=== PATIENT | female | born 1975 | race Caucasian/White ===

== ENCOUNTER → 2016-10-26 | Outpatient (CLI) | payer OTHER ==
[2016-10-26 11:08] LABS: Blood Urea Nitrogen 10 mg/dL (7-17); Non-African American GFR(MDRD) >60 (>60 ml/min/1.73 sqM)
--- NOTE | 2016-10-26 12:55 | CT ---
EXAMINATION TYPE: CT abdomen pelvis w con DATE OF EXAM: 10/26/2016 COMPARISON: 09/01/2015 HISTORY: Abdominal hernia CT DLP: 2088 mGycm CONTRAST: CT scan of the abdomen and pelvis is performed with Oral Contrast and with IV Contrast, patient injec johnathan with 100 mL of Omnipaque 300. FINDINGS: LUNG BASES-: No visible nodule. No infiltrate. LIVER/GB: There is evidence of hepatic steatosis with hepatomegaly. The gallbladder is surgically abs ent. No space occupying hepatic lesion. Biliary tree is of normal caliber. PANCREAS: No inflammation. No distinct mass. SPLEEN: No splenic enlargement. No lesion seen. ADRENALS: No nodule. No thickening. KIDNEYS/BLADDER: No hydronephrosis. No nephrolithiasis. No disctinct renal mass. Urinary bladder g rossly unremarkable. BOWEL: Normal appendix. Normal bowel caliber. No inflammation. There is moderate fecal stasis ident ified. GENITAL ORGANS: No gross abnormality. LYMPH NODES: No greater than 1cm abdominal or pelvic lymph nodes are appreciated. AORTA: No significant abnormality. OSSEOUS STRUCTURES: No significant abnormality is seen. OTHER: The right rectus sheath musculature is atrophied. I do not see evidence for abdominal wall her bradford at this time. IMPRESSION: 1. No evidence for abdominal wall hernia. 2. Hepatic steatosis with hepatomegaly.
== END | disposition home or self-care (01) ==
LOC: RADCTMAIN 10:13
PROVIDERS: ATTEND Surgery
DX: K76.0 Fatty (change of) liver, not elsewhere classified (principal); R16.0 Hepatomegaly, not elsewhere classified
CPT/HCPCS: 82565; 84520; 74177; 36415; Q9967

== ENCOUNTER 2017-07-06 06:01 | Day surgery (SDC) | payer MEDICARE, OTHER ==
[2017-07-04 11:08] VITALS: BMI 41.9
[~2017-07-06 06:01] MED LIST: LACTATED RINGERS 1,000 ML IV SCH
[2017-07-06 06:46] VITALS: TEMP 98.3
[2017-07-06 06:56] LABS: Glucose,Whole Blood 97 mg/dL (75-99)
[2017-07-06] MEDS ORDERED: LIDOCAINE 1% INJ 10MG/ML (20 ML MDV) ONE (07:00)
[2017-07-06] MEDS ORDERED: MIDAZOLAM 2 MG/2 ML VIAL ONE (07:00)
[2017-07-06] MEDS ORDERED: PROPOFOL 10 MG/ML 20 ML VIAL IV ONE (07:00)
--- NOTE | 2017-07-06 07:01 | P.GSHP ---
History of Present Illness H&P Date: 07/06/17 CHIEF COMPLAINT: GERD HISTORY OF PRESENT ILLNESS: The patient is a 42-year-old female who presents reports gastroesophageal reflux disease. Upper endoscopy was offered for further evaluation and management. PAST MEDICAL HISTORY: Please see list. PAST SURGICAL HISTORY: Please see list. MEDICATIONS: Please see list. ALLERGIES: Please see list. SOCIAL HISTORY: No illicit drug use FAMILY HISTORY: No reports of Crohn disease or ulcerative colitis. REVIEW OF ORGAN SYSTEMS: CONSTITUTIONAL: No reports of fevers or chills. GI: Denies any blood in stools or constipation. PHYSICAL EXAM: VITAL SIGNS: Stable GENERAL: Well-developed and pleasant in no acute distress. HEENT: No scleral icterus. Extraocular movements grossly intact. Moist buccal mucosa. NECK: Supple without lymphadenopathy. CHEST: Unlabored respirations. Equal bilateral excursions. CARDIOVASCULAR: Regular rate and rhythm. Distal 2+ pulses. ABDOMEN: Soft, nondistended. MUSCULOSKELETAL: No clubbing, cyanosis, or edema. ASSESSMENT: 1. Gastroesophageal reflux disease PLAN: 1. Recommend proceeding with an upper endoscopy Past Medical History Past Medical History: Asthma, Cancer, Diabetes Mellitus, GERD/Reflux, Hypertension Additional Past Medical History / Comment(s): allergies, breast cancer History of Any Multi-Drug Resistant Organisms: None Reported Past Surgical History: Breast Surgery, Cholecystectomy, Hysterectomy Additional Past Surgical History / Comment(s): LEFT MASTECTOMY WITH RECONSTRUCTION Past Anesthesia/Blood Transfusion Reactions: No Reported Reaction Smoking Status: Never smoker - Past Family History Mother Family Medical History: Deep Vein Thrombosis (DVT) Medications and Allergies Home Medications Medication Instructions Recorded Confirmed Type Albuterol Inhaler [Ventolin Hfa 1 - 2 puff INHALATION Q6HR PRN 04/12/15 History Inhaler] Cetirizine HCl 10 mg PO DAILY 04/12/15 07/06/17 History DULoxetine HCL [Cymbalta] 60 mg PO BID 04/12/15 07/06/17 History HYDROcodone/APAP 5-325MG [[place] 1 tab PO Q4HR PRN 04/12/15 07/06/17 History 5-325] Ipratropium-Albuterol Nebulize 3 ml INHALATION Q4H PRN #50 neb 04/12/15 Rx [Duoneb 0.5 mg-3 mg/3 ml Soln] amLODIPine BESYLATE [Norvasc] 5 mg PO HS 04/12/15 07/06/17 History buPROPion XL [Wellbutrin Xl] 150 mg PO DAILY 04/12/15 07/06/17 History ALPRAZolam [Xanax] 0.5 mg PO BID 07/04/17 07/06/17 History Benztropine Mesylate 0.5 mg PO BID 07/04/17 07/06/17 History Ergocalciferol (Vitamin D2) 50,000 unit PO SA 07/04/17 07/06/17 History [Vitamin D2] Furosemide [Lasix] 40 mg PO DAILY 07/04/17 07/06/17 History Losartan [Cozaar] 50 mg PO HS 07/04/17 07/06/17 History OXcarbazepine [Trileptal] 300 mg PO BID 07/04/17 07/06/17 History Omeprazole 40 mg PO DAILY 07/04/17 07/06/17 History Potassium Chloride [Klor-Con 20] 20 meq PO DAILY 07/04/17 07/06/17 History QUEtiapine [SEROquel] 100 mg PO HS 07/04/17 07/06/17 History cloNIDine HCL [Catapres] 0.2 mg PO HS 07/04/17 07/06/17 History metFORMIN HCL [Glucophage] 500 mg PO DAILY 07/04/17 07/06/17 History Allergies Allergy/AdvReac Type Severity Reaction Status Date / Time No Known Allergies Allergy Verified 07/04/17 11:01 Surgical - Exam Vital Signs Temp Pulse Resp BP Pulse Ox 98.3 F 62 20 123/71 98 07/06/17 06:44 07/06/17 06:44 07/06/17 06:44 07/06/17 06:44 07/06/17 06:44
--- NOTE | 2017-07-06 07:20 | P.PCN ---
Date of Procedure: 07/06/17 Description of Procedure: PREOPERATIVE DIAGNOSIS: Gastroesophageal reflux disease. Morbid obesity. POSTOPERATIVE DIAGNOSIS: Morbid obesity. Gastritis. Gastroesophageal reflux disease. OPERATION: Esophagogastroduodenoscopy with biopsies along antrum. SURGEON: Cindy Manzano MD ANESTHESIA: MAC. INDICATIONS: The patient is a 42-year-old female who presents with a history of reflux disease. Benefits and risks of the procedure were described. Informed consent was obtained. DESCRIPTION: The patient was brought into the endoscopy suite and laid in the left lateral decubitus position. An Olympus gastroscope was passed along the posterior oropharynx down to the distal esophagus where the squamocolumnar junction was encountered at 37 cm from the incisors. The stomach was entered and bile reflux was found and suctioned from the stomach. Additional findings are listed below. Biopsies with cold forceps were obtained of the antrum. The first through third portion of the duodenum was examined and unremarkable. Retroflexion of the scope confirmed Hill grade 2 lower esophageal valve. The squamocolumnar junction demostrated LA grade A erosive esophagitis. The stomach was desufflated. The patient tolerated the procedure well. FINDINGS: Squamocolumnar junction 37 cm from the incisors. Diaphragmatic hiatus at 37 cm. Hill grade 2 lower esophageal valve. LA grade A erosive esophagitis. No active duodenitis. Active superficial gastritis RECOMMENDATIONS: Upper endoscopy as needed. Plan - Discharge Summary New Discharge Prescriptions: No Action Cetirizine HCl 10 mg PO DAILY Albuterol Inhaler [Ventolin Hfa Inhaler] 1 - 2 puff INHALATION Q6HR PRN PRN Reason: Shortness Of Breath buPROPion XL [Wellbutrin Xl] 150 mg PO DAILY amLODIPine BESYLATE [Norvasc] 5 mg PO HS HYDROcodone/APAP 5-325MG [[place] 5-325] 1 tab PO Q4HR PRN PRN Reason: Pain DULoxetine HCL [Cymbalta] 60 mg PO BID Ipratropium-Albuterol Nebulize [Duoneb 0.5 mg-3 mg/3 ml Soln] 3 ml INHALATION Q4H PRN #50 neb PRN Reason: Cough metFORMIN HCL [Glucophage] 500 mg PO DAILY Losartan [Cozaar] 50 mg PO HS ALPRAZolam [Xanax] 0.5 mg PO BID cloNIDine HCL [Catapres] 0.2 mg PO HS Benztropine Mesylate 0.5 mg PO BID QUEtiapine [SEROquel] 100 mg PO HS Potassium Chloride [Klor-Con 20] 20 meq PO DAILY OXcarbazepine [Trileptal] 300 mg PO BID Furosemide [Lasix] 40 mg PO DAILY Omeprazole 40 mg PO DAILY Ergocalciferol (Vitamin D2) [Vitamin D2] 50,000 unit PO SA Discharge Medication List Albuterol Inhaler [Ventolin Hfa Inhaler] 1 - 2 puff INHALATION Q6HR PRN [History] Cetirizine HCl 10 mg PO DAILY 04/12/15 [History] DULoxetine HCL [Cymbalta] 60 mg PO BID 04/12/15 [History] HYDROcodone/APAP 5-325MG [[place] 5-325] 1 tab PO Q4HR PRN 04/12/15 [History] Ipratropium-Albuterol Nebulize [Duoneb 0.5 mg-3 mg/3 ml Soln] 3 ml INHALATION Q4H PRN #50 neb 04/12/15 [Rx] amLODIPine BESYLATE [Norvasc] 5 mg PO HS 04/12/15 [History] buPROPion XL [Wellbutrin Xl] 150 mg PO DAILY 04/12/15 [History] ALPRAZolam [Xanax] 0.5 mg PO BID 07/04/17 [History] Benztropine Mesylate 0.5 mg PO BID 07/04/17 [History] Ergocalciferol (Vitamin D2) [Vitamin D2] 50,000 unit PO SA 07/04/17 [History] Furosemide [Lasix] 40 mg PO DAILY 07/04/17 [History] Losartan [Cozaar] 50 mg PO HS 07/04/17 [History] OXcarbazepine [Trileptal] 300 mg PO BID 07/04/17 [History] Omeprazole 40 mg PO DAILY 07/04/17 [History] Potassium Chloride [Klor-Con 20] 20 meq PO DAILY 07/04/17 [History] QUEtiapine [SEROquel] 100 mg PO HS 07/04/17 [History] cloNIDine HCL [Catapres] 0.2 mg PO HS 07/04/17 [History] metFORMIN HCL [Glucophage] 500 mg PO DAILY 07/04/17 [History]
[2017-07-06 07:40] VITALS: BP 132/83; PULSE 69; RESP 18
== END 2017-07-06 07:52 | disposition home or self-care (01) ==
LOC: ORWHC2ENDO 06:01
PROVIDERS: ATTEND Surgery Plastic and Reconstructive Surgery
DX: K29.30 Chronic superficial gastritis without bleeding (principal); K21.0 Gastro-esophageal reflux disease with esophagitis; K22.10 Ulcer of esophagus without bleeding; E66.01 Morbid (severe) obesity due to excess calories; Z68.41 Body mass index [BMI] 40.0-44.9, adult; J45.909 Unspecified asthma, uncomplicated; E11.9 Type 2 diabetes mellitus without complications; I10 Essential (primary) hypertension; Z85.3 Personal history of malignant neoplasm of breast; Z90.12 Acquired absence of left breast and nipple; Z79.84 Long term (current) use of oral hypoglycemic drugs; Z79.899 Other long term (current) drug therapy
CPT/HCPCS: 88305; 43239; J2250; J2001; J2704

== ENCOUNTER → 2017-07-18 | Outpatient (CLI) | payer MEDICARE, OTHER ==
[2017-07-18 14:17] VITALS: BP 144/90; PULSE 88; TEMP 98.1; BMI 41.1
--- NOTE | 2017-07-18 14:58 | P.HPBAR ---
Bariatric H&P - History & Physicial H&P Date: 07/18/17 History & Physicial: Visit/CC: initial clinic visit Patient initial contact: Initial weight: Initial weight in pounds: Height: 5 ft 6 in Initial BMI: Last weight: Current weight: 115.439 kg Current weight in pounds: 254.50 Current BMI: 41.1 [place] body weight (based on NIH guidelines): 58.967 kg Excess body weight loss: The patient is a 42 year-old F who presents for Bariatric Assessment. HPI: Slow and steady weight loss recommended per insurance guideline. 2-week protein diet reviewed. EGD findings reviewed. She reports burning in the chest. She is hypertensive. She is pending completion of heart assessment. PLAN: 1. Recommed EKG 2. Recommend bariatric initial labs. Past Medical History Past Medical History: Asthma, Cancer, Diabetes Mellitus, GERD/Reflux, Hypertension Additional Past Medical History / Comment(s): allergies, breast cancer History of Any Multi-Drug Resistant Organisms: None Reported Past Surgical History: Breast Surgery, Cholecystectomy, Hysterectomy Additional Past Surgical History / Comment(s): LEFT MASTECTOMY WITH RECONSTRUCTION Past Anesthesia/Blood Transfusion Reactions: No Reported Reaction Past Psychological History: ADD/ADHD, Anxiety, Depression Smoking Status: Never smoker Past Alcohol Use History: None Reported Past Drug Use History: None Reported - Past Family History Mother Family Medical History: Deep Vein Thrombosis (DVT) Surgical - Exam Vital Signs Temp Pulse BP 98.1 F 88 144/90 07/18/17 14:15 07/18/17 14:15 07/18/17 14:15 Bariatric Checklist Checklist: Plan: Checklist: EGD: 1. Hiatal hernia: 2. H. Pylori: HgbA1c: Vitamin D: Smoking: Never smoker Primary care physician referral: dr calderno Psychiatry clearance: Cardiology clearance: Sleep study: Diet journal: VTE risk score: VTE risk level: Rehab needs at discharge:
[2017-07-18 16:03] LABS: HCT 40.2 % (34.0-46.0); HGB 14.3 gm/dL (11.4-16.0); MCH 29.6 pg (25.0-35.0); MCHC 35.5 g/dL (31.0-37.0); MCV 83.5 fL (80.0-100.0); Mean Platelet Volume 7.4; Platelet Count 282 k/uL (150-450); RBC 4.82 m/uL (3.80-5.40); RDW 12.7 % (11.5-15.5); WBC 5.4 k/uL (3.8-10.6)
[2017-07-18 16:23] LABS: ALT 49 U/L (9-52); AST 35 U/L (14-36); Albumin 4.8 g/dL (3.5-5.0); Alkaline Phosphatase 79 U/L (38-126); Anion Gap 15 mmol/L; Blood Urea Nitrogen 11 mg/dL (7-17); Calcium 9.7 mg/dL (8.4-10.2); Carbon Dioxide 28 mmol/L (22-30); Chloride 100 mmol/L (98-107); Cholesterol 218 mg/dL (<200); Glucose 109 mg/dL (74-99); HDL Cholesterol 45 mg/dL (40-60); LDL Cholesterol,Calculated 124 mg/dL (0-99); Sodium 143 mmol/L (137-145); Total Bilirubin 0.3 mg/dL (0.2-1.3); Total Protein 7.3 g/dL (6.3-8.2); Triglycerides 244 mg/dL (<150)
[2017-07-19 11:55] LABS: Folate, Serum >24.0 ng/mL
== END | disposition home or self-care (01) ==
LOC: BARWHC3 13:42
PROVIDERS: ATTEND Surgery Plastic and Reconstructive Surgery
DX: E88.81 Metabolic syndrome and other insulin resistance (principal); E66.01 Morbid (severe) obesity due to excess calories; K21.9 Gastro-esophageal reflux disease without esophagitis; R63.4 Abnormal weight loss; J45.909 Unspecified asthma, uncomplicated; E11.9 Type 2 diabetes mellitus without complications; F41.9 Anxiety disorder, unspecified; F32.9 Major depressive disorder, single episode, unspecified; F98.8 Other specified behavioral and emotional disorders with onset usually occurring in childhood and adolescence; I11.9 Hypertensive heart disease without heart failure; E55.9 Vitamin D deficiency, unspecified; G47.30 Sleep apnea, unspecified; Z90.49 Acquired absence of other specified parts of digestive tract; Z90.710 Acquired absence of both cervix and uterus; Z85.3 Personal history of malignant neoplasm of breast; Z68.41 Body mass index [BMI] 40.0-44.9, adult; Z90.12 Acquired absence of left breast and nipple
CPT/HCPCS: 84425; 80061; 80053; 82607; 82728; 82746; 83540; 83550; 84443; 85027; 93005; 36415; G0463; 99211

== ENCOUNTER → 2018-01-21 | Outpatient (CLI) | payer MEDICARE, OTHER ==
[2018-01-21 14:05] VITALS: BMI 41.1
== END | disposition home or self-care (01) ==
LOC: BARWHC3 09:29
PROVIDERS: ATTEND Surgery Plastic and Reconstructive Surgery
DX: E66.01 Morbid (severe) obesity due to excess calories (principal); Z68.41 Body mass index [BMI] 40.0-44.9, adult
CPT/HCPCS: 97804

== ENCOUNTER → 2019-03-19 | Outpatient (CLI) | payer MEDICARE, OTHER ==
--- NOTE | 2019-03-19 15:59 | P.PN ---
Subjective Progress Note Date: 03/19/19 DATE OF SERVICE: 03/19/2019 CHIEF COMPLAINT: Morbid obesity HISTORY OF PRESENT ILLNESS: Michelle Glez is a 44-year-old female who comes in with long-standing morbid obesity. She comes in with multiple comorbidities related to her morbid obesity including hypertension, diabetes type 2, obstructive sleep apnea, gastroesophageal reflux disease and hyperlipidemia. She has completed 2 years of medical supervised weight loss. She comes in looking into surgical weight loss options. She presents in consultation. At height of 5 feet 6 inches, ideal body weight is 154 pounds. Highest weight is 254 pounds, BMI 41.1. Today she comes in 240 pounds from 254 pounds after 1 year. She has lost 13 pounds in over 1 year. Her body mass index is 38.9. She is 86 pounds overweight. PAST MEDICAL HISTORY: 1. Morbid obesity due to excess weight loss 2. Body mass index of 41.1 3. Osteoarthritis of the knees. 4. Osteoarthritis of the hips. 5. Osteoarthritis of the lower back. 6. Obstructive sleep apnea. 7. Hypertensive heart disease. 8. Diabetes type 2, [id number] 9. Depressive disorder 10. Asthma 11. Anxiety 12. Gastroesophageal reflux disease 13. Left breast cancer 14. ADHD/ADD PAST SURGICAL HISTORY: 1. Left breast mastectomy with reconstruction 2. Cholecystectomy 3. Hysterectomy HOME MEDICATIONS: 1. Glucophage 2. Clonidine 3. Wellbutrin XL 4. Norvasc 5. Seroquel 6. Potassium chloride 7. Omeprazole 8. Trileptal 9. Cozaar 10. Duoneb 11. [place] 12. Lasix 13. Vitamin D 14. Cymbalta 15. Cetirizine 16. Benztropine 17. Albuterol inhaler 18. Xanax ALLERGIES: Denies. SOCIAL HISTORY: No active tobacco use. FAMILY HISTORY: No family history of ulcerative colitis disease or Crohn's disease. Family history of morbid obesity. No lupus in the family. No reports of stomach or esophageal cancer. Family history of diabetes type 2. REVIEW OF ORGAN SYSTEMS: CONSTITUTIONAL: At height of 5 feet 6 inches, his ideal body weight is 154 pounds. She comes in with 254 pounds. Body mass index is 41.1. She is 100 pounds overweight. HEENT: Denies any active troubles with vision or hearing. No troubles with swallowing. ENDOCRINE: Has diabetes. No hypothyroidism. CARDIOVASCULAR: No reports of palpitations or heart attacks or chest pain. RESPIRATORY: Has daytime somnolence. Has asthma. GI: Denies any bright red blood per rectum. No diarrhea or constipation. Has GERD. MUSCULOSKELETAL: Has lower back pain and joint pain. Has osteoarthritis of the knees. NEURO: No headaches. No seizure disorders. PSYCH: No suicidal ideation. Has ADD/ADHD. Has anxiety. RHEUMATOLOGIC: No lupus. No rheumatoid arthritis. HEMATOLOGIC: Denies any abnormal bleeding or bruising. No personal history of DVTs. SKIN: No rash. No skin cancer. PHYSICAL EXAM: VITAL SIGNS: Height 5 foot 6 inches, weight 240 pounds. BMI 41.1 Vital Signs Temp 98.2 F 03/19/19 16:12 Pulse 80 03/19/19 16:12 Resp BP 122/77 03/19/19 16:12 Pulse Ox GENERAL: Well-developed in no acute distress. HEENT: No scleral icterus. Extraocular movements grossly intact. Hears conversational speech. No nasal drainage. NECK: Supple without lymphadenopathy. CHEST: Nonlabored respirations with equal bilateral excursions. CARDIOVASCULAR: Regular rate and regular rhythm. Distal 2+ pulses. ABDOMEN: Obese, soft, nontender, nondistended. MUSCULOSKELETAL: No clubbing, cyanosis. NEURO: No focal or lateralizing signs. Cranial nerves 2 through 12 grossly within normal limits. PSYCH: Appropriate affect. Alert and oriented to person, place and time. SKIN: Good skin turgor. Well perfused. ASSESSMENT: 1. Morbid obesity due to excess calories. 2. Body mass index of 41.1 to 38.9 3. Osteoarthritis of the knees. 4. Osteoarthritis of the hips. 5. Osteoarthritis of the lower back. 6. Obstructive sleep apnea. 7. Hypertensive heart disease. 8. Diabetes type 2, [id number] 9. Depressive disorder 10. Asthma 11. Anxiety 12. Gastroesophageal reflux disease 13. History of left breast cancer 14. ADHD/ADD PLAN: 1. Bariatric options between a sleeve, band and a [place]-en-Y gastric bypass were reviewed in detail. The patient elected for a sleeve gastrectomy. Robotic assisted approach described. 2. The [place] [facility] Data was also reviewed with benefits and risks as described. 3. An 8 page second-generation bariatric consent form was reviewed in detail including potential of bleeding, infection, leaks, adequate weight loss, nutritional deficiencies which the patient demonstrated understanding of the risks. 4. A 2 week high-protein low caloric 800 kcal diet described to address hepatomegaly. 5. Preoperative labs including complete metabolic panel and CBC with type and screen recommended. 6. DVT prophylaxis per [place] [facility]. 7. Antibiotic prophylaxis. 8. Inpatient hospitalization anticipated for more than 2 nights. 9. All questions and concerns were addressed with the patient. 10. She has completed at least 2 years of medical supervised weight loss. 11. Recommend full bariatric metabolic panel 12. Recommend 12-lead EKG Laboratory Last Values WBC 8.0 k/uL (3.8-10.6) 03/19/19 17:10 RBC 4.94 m/uL (3.80-5.40) 03/19/19 17:10 Hgb 11.6 gm/dL (11.4-16.0) 03/19/19 17:10 Hct 36.2 % (34.0-46.0) 03/19/19 17:10 MCV 73.3 fL (80.0-100.0) L 03/19/19 17:10 MCH 23.6 pg (25.0-35.0) L 03/19/19 17:10 MCHC 32.1 g/dL (31.0-37.0) 03/19/19 17:10 RDW 15.2 % (11.5-15.5) 03/19/19 17:10 Plt Count 315 k/uL (150-450) 03/19/19 17:10 Microcytosis Slight 03/19/19 17:10 PT 10.1 sec (9.0-12.0) 03/19/19 17:10 INR 1.0 (<1.2) 03/19/19 17:10 APTT 25.0 sec (22.0-30.0) 03/19/19 17:10 Sodium 142 mmol/L (135-145) 03/19/19 17:10 Potassium 4.1 mmol/L (3.5-5.5) 03/19/19 17:10 Chloride 103 mmol/L (96-109) 03/19/19 17:10 Carbon Dioxide 27.2 mmol/L (21.6-31.8) 03/19/19 17:10 Anion Gap 11.80 mmol/L (4.00-12.00) 03/19/19 17:10 BUN 8.0 mg/dL (9.0-27.0) L 03/19/19 17:10 Creatinine 0.7 mg/dL (0.6-1.5) 03/19/19 17:10 Est GFR (CKD-EPI)AfAm 123.0 (60.0-200.0) 03/19/19 17:10 Est GFR (CKD-EPI)NonAf 106.1 (60.0-200.0) 03/19/19 17:10 BUN/Creatinine Ratio 11.43 Ratio (12.00-20.00) L 03/19/19 17:10 Glucose 115 mg/dL (70-110) H 03/19/19 17:[address] Glu mg/dL 123 03/19/19 17:10 Hemoglobin A1c 5.9 % (4.0-6.0) 03/19/19 17:10 Calcium 9.6 mg/dL (8.7-10.3) 03/19/19 17:10 Phosphorus 3.8 mg/dL (2.4-5.1) 03/19/19 17:10 Magnesium 2.0 mg/dL (1.5-2.4) 03/19/19 17:10 Iron 37 ug/dL (50-170) L 03/19/19 17:10 TIBC 496 ug/dL (228-460) H 03/19/19 17:10 % Saturation 7.46 (12.00-45.00) L 03/19/19 17:10 Ferritin 6.8 ng/mL (10.0-291.0) L 03/19/19 17:10 Total Bilirubin 0.5 mg/dL (0.3-1.2) 03/19/19 17:10 AST 30 U/L (13-35) 03/19/19 17:10 ALT 33 U/L (8-44) 03/19/19 17:10 Alkaline Phosphatase 83 U/L (41-126) 03/19/19 17:10 Total Protein 7.2 g/dL (6.2-8.2) 03/19/19 17:10 Albumin 5.30 g/dL (3.80-4.90) H 03/19/19 17:10 Globulin 1.9 g/dL (1.6-3.3) 03/19/19 17:10 Albumin/Globulin Ratio 2.79 g/dL (1.60-3.17) 03/19/19 17:10 Prealbumin 28.0 mg/dL (18.0-42.0) 03/19/19 17:10 Triglycerides 164.0 mg/dL (0.0-149.0) H 03/19/19 17:10 Cholesterol 219 mg/dL (0-200) H 03/19/19 17:10 LDL Cholesterol, Calc 136.2 mg/dL (0.0-131.0) H 03/19/19 17:10 VLDL Cholesterol, Calc 32.80 mg/dL (5.00-40.00) 03/19/19 17:10 HDL Cholesterol 50.0 mg/dL (40.0-60.0) 03/19/19 17:10 Cholesterol/HDL Ratio 4.38 03/19/19 17:10 Vitamin A 65 ug/dL (38-106) 03/19/19 17:10 Vitamin B1 56 ug/L (38-122) 03/19/19 17:10 Vitamin B12 688.0 pg/mL (200.0-944.0) 03/19/19 17:10 Vitamin D 25-Hydroxy 43.0 ng/mL (30.0-100.0) 03/19/19 17:10 Folate >24.0 ng/mL 03/19/19 17:10 TSH 0.740 uIU/mL (0.350-5.500) 03/19/19 17:10 PTH Intact 85.2 pg/mL (14.0-72.0) H 03/19/19 17:10 Copper 1093 ug/L (810-1990) 03/19/19 17:10 Selenium 108 mcg/L (63-160) 03/19/19 17:10 Zinc 78 ug/dL (60-130) 03/19/19 17:10 EKG EKG PERFORMED 03/19/19 17:10 Iron is low, recommend IV infusion for iron PTH is elevated EKG with multiple abnormalities with cardiac clearance pending. Objective - Labs CBC & Chem 7: 03/19/19 17:10 03/19/19 17:10
[2019-03-19 16:14] VITALS: BP 122/77; PULSE 80; TEMP 98.2; BMI 38.9
[2019-03-19 17:38] LABS: HCT 36.2 % (34.0-46.0); HGB 11.6 gm/dL (11.4-16.0); MCH 23.6 pg (25.0-35.0); MCHC 32.1 g/dL (31.0-37.0); MCV 73.3 fL (80.0-100.0); Mean Platelet Volume 7.6; Microcytosis Slight; Platelet Count 315 k/uL (150-450); RBC 4.94 m/uL (3.80-5.40); RDW 15.2 % (11.5-15.5)
[2019-03-19 17:43] LABS: Prothrombin Time 10.1 sec (9.0-12.0)
[2019-03-20 00:31] LABS: Hemoglobin A1C 5.9 % (4.0-6.0)
[2019-03-20 00:55] LABS: % Iron Saturation 7.46 (12.00-45.00); ALT 33 U/L (8-44); AST 30 U/L (13-35); Albumin/Globulin Ratio 2.79 (1.60-3.17); Alkaline Phosphatase 83 U/L (41-126); BUN/Creat Ratio 11.43 Ratio (12.00-20.00); Calcium 9.6 mg/dL (8.7-10.3); Carbon Dioxide 27.2 mmol/L (21.6-31.8); Chloride 103 mmol/L (96-109); Chol/HDL Ratio 4.38; Cholesterol 219 mg/dL (0-200); Ferritin 6.8 ng/mL (10.0-291.0); Folate, Serum >24.0 ng/mL; Globulin 1.9 g/dL (1.6-3.3); Glucose 115 mg/dL (70-110); Iron 37 ug/dL (50-170); LDL Cholesterol,Calculated 136.2 mg/dL (0.0-131.0); Non-African American GFR(CKD) 106.1 (60.0-200.0); Phosphorus 3.8 mg/dL (2.4-5.1); Potassium 4.1 mmol/L (3.5-5.5); Sodium 142 mmol/L (135-145); Total Bilirubin 0.5 mg/dL (0.3-1.2); Total Iron Binding Capacity 496 ug/dL (228-460); Total Protein 7.2 g/dL (6.2-8.2)
[2019-03-20 14:52] LABS: Zinc, Serum 78 ug/dL (60-130)
[2019-03-21 07:46] LABS: Vitamin A 65 ug/dL (38-106)
[2019-03-21 10:47] LABS: Vit B1(Thiamine) 56 ug/L (38-122)
[2019-03-22 00:18] LABS: Selenium 108 mcg/L (63-160)
== END | disposition home or self-care (01) ==
LOC: BARWHC3 14:39
PROVIDERS: ATTEND Surgery Plastic and Reconstructive Surgery
DX: E66.01 Morbid (severe) obesity due to excess calories (principal); E11.9 Type 2 diabetes mellitus without complications; J45.909 Unspecified asthma, uncomplicated; F41.9 Anxiety disorder, unspecified; F32.9 Major depressive disorder, single episode, unspecified; K21.9 Gastro-esophageal reflux disease without esophagitis; G47.33 Obstructive sleep apnea (adult) (pediatric); I11.0 Hypertensive heart disease with heart failure; M17.0 Bilateral primary osteoarthritis of knee; M16.0 Bilateral primary osteoarthritis of hip; M47.816 Spondylosis without myelopathy or radiculopathy, lumbar region; Z85.3 Personal history of malignant neoplasm of breast; F90.9 Attention-deficit hyperactivity disorder, unspecified type; E21.1 Secondary hyperparathyroidism, not elsewhere classified; D50.9 Iron deficiency anemia, unspecified; E44.0 Moderate protein-calorie malnutrition; E55.9 Vitamin D deficiency, unspecified; K74.1 Hepatic sclerosis; N19 Unspecified kidney failure; K50.90 Crohn's disease, unspecified, without complications; Z68.41 Body mass index [BMI] 40.0-44.9, adult
CPT/HCPCS: 84255; 84134; 84425; 80061; 80053; 82607; 82728; 82525; 82746; 83540; 83550; 83735; 84100; 84443; 84590; 84630; 85027; 85610; 85730; 82306; 83970; 83036; 93005; G0463; 99211

== ENCOUNTER → 2019-04-11 | Outpatient (CLI) | payer MEDICARE, OTHER ==
[2019-04-11 13:10] LABS: Anisocytosis Slight; Basophils % (A) 0 %; Eosinophils # (A) 0.1 k/uL (0-0.7); Eosinophils % (A) 1 %; HCT 38.1 % (34.0-46.0); HGB 12.4 gm/dL (11.4-16.0); Lymphocytes # (A) 2.2 k/uL (1.0-4.8); Lymphocytes % (A) 28 %; MCH 24.9 pg (25.0-35.0); MCHC 32.6 g/dL (31.0-37.0); MCV 76.5 fL (80.0-100.0); Mean Platelet Volume 7.4; Microcytosis Slight; Monocytes # (A) 0.5 k/uL (0-1.0); Monocytes % (A) 6 %; Neutrophils % (A) 63 %; Platelet Count 253 k/uL (150-450); RBC 4.98 m/uL (3.80-5.40); RDW 19.1 % (11.5-15.5); WBC 7.9 k/uL (3.8-10.6)
[2019-04-11 13:22] LABS: ALT 35 U/L (4-34); AST 35 U/L (14-36); African American GFR (CKD) >90 (>60 ml/min/1.73 sqM); Albumin 5.1 g/dL (3.5-5.0); Alkaline Phosphatase 65 U/L (38-126); Anion Gap 15 mmol/L; Blood Urea Nitrogen 19 mg/dL (7-17); Calcium 10.4 mg/dL (8.4-10.2); Carbon Dioxide 24 mmol/L (22-30); Chloride 103 mmol/L (98-107); Glucose 94 mg/dL (74-99); Non-African American GFR(CKD) 87 (>60 ml/min/1.73 sqM); Sodium 142 mmol/L (137-145); Total Bilirubin 0.4 mg/dL (0.2-1.3)
== END | disposition home or self-care (01) ==
LOC: LABPAT 12:13
PROVIDERS: ATTEND Surgery Plastic and Reconstructive Surgery
DX: Z01.812 Encounter for preprocedural laboratory examination (principal)
CPT/HCPCS: 80053; 85025; 86850; 86900; 86901

== ENCOUNTER 2019-04-21 07:30 | Inpatient (IN) | payer MEDICARE, OTHER ==
[2019-04-14 14:01] VITALS: BMI 39.8
--- NOTE | 2019-04-21 06:11 | P.GSHP ---
History of Present Illness H&P Date: 04/21/19 DATE OF SERVICE: 04/21/2019 CHIEF COMPLAINT: Morbid obesity HISTORY OF PRESENT ILLNESS: Michelle Glez is a 44-year-old female who comes in with long-standing morbid obesity. She comes in with multiple comorbidities related to her morbid obesity including hypertension, diabetes type 2, obstruc tive sleep apnea, gastroesophageal reflux disease and hyperlipidemia. She has tried calorie restriction. She is looking into the sleeve gastrectomy. At height of 5 feet 6 inches, her ideal body weight is 154 pounds. She comes in 242 pounds from 254 pounds. Her body mass index was 41.1. She was 100 pounds overweight. PAST MEDICAL HISTORY: 1. Morbid obesity. 2. Body mass index of 41.1 3. Osteoarthritis of the knees. 4. Osteoarthritis of the hips. 5. Osteoarthritis of the lower back. 6. Obstructive sleep apnea. 7. Hypertensive heart disease. 8. Diabetes type 2, [id number] 9. Depressive disorder 10. Asthma 11. Anxiety 12. Gastroesophageal reflux disease 13. Left breast cancer 14. ADHD/ADD PAST SURGICAL HISTORY: 1. Left breast mastectomy with reconstruction 2. Cholecystectomy 3. Hysterectomy HOME MEDICATIONS: 1. Glucophage 2. Clonidine 3. Wellbutrin XL 4. Norvasc 5. Seroquel 6. Potassium chloride 7. Omeprazole 8. Trileptal 9. Cozaar 10. Duoneb 11. [place] 12. Lasix 13. Vitamin D 14. Cymbalta 15. Cetirizine 16. Benztropine 17. Albuterol inhaler 18. Xanax ALLERGIES: Denies. SOCIAL HISTORY: No active tobacco use. FAMILY HISTORY: No family history of ulcerative colitis disease or Crohn's disease. Family history of morbid obesity. No lupus in the family. No reports of stomach or esophageal cancer. Family history of diabetes type 2. REVIEW OF ORGAN SYSTEMS: CONSTITUTIONAL: At height of 5 feet 6 inches, his ideal body weight is 154 pounds. She comes in with 254 pounds. Body mass index is 41.1. She is 100 pounds overweight. HEENT: Denies any active troubles with vision or hearing. No troubles with swallowing. ENDOCRINE: Has diabetes. No hypothyroidism. CARDIOVASCULAR: No reports of palpitations or heart attacks or chest pain. RESPIRATORY: Has daytime somnolence. Has asthma. GI: Denies any bright red blood per rectum. No diarrhea or constipation. Has GERD. MUSCULOSKELETAL: Has lower back pain and joint pain. Has osteoarthritis of the knees. NEURO: No headaches. No seizure disorders. PSYCH: No suicidal ideation. Has ADD/ADHD. Has anxiety. RHEUMATOLOGIC: No lupus. No rheumatoid arthritis. HEMATOLOGIC: Denies any abnormal bleeding or bruising. No personal history of DVTs. SKIN: No rash. No skin cancer. PHYSICAL EXAM: VITAL SIGNS: Height 5 foot 6 inches, weight 242 pounds. BMI 39.1 GENERAL: Well-developed in no acute distress. HEENT: No scleral icterus. Extraocular movements grossly intact. Hears conversational speech. No nasal drainage. NECK: Supple without lymphadenopathy. CHEST: Nonlabored respirations with equal bilateral excursions. CARDIOVASCULAR: Regular rate and regular rhythm. Distal 2+ pulses. ABDOMEN: Obese, soft, nontender, nondistended. MUSCULOSKELETAL: No clubbing, cyanosis. Gross strength 5/5 distal lower extremities. NEURO: No focal or lateralizing signs. Cranial nerves 2 through 12 grossly within normal limits. PSYCH: Appropriate affect. Alert and oriented to person, place and time. SKIN: Good skin turgor. Well perfused. ASSESSMENT: 1. Morbid obesity due to excess calories. 2. Body mass index of 41.1, initial 3. Osteoarthritis of the knees. 4. Osteoarthritis of the hips. 5. Osteoarthritis of the lower back. 6. Obstructive sleep apnea. 7. Hypertensive heart disease. 8. Diabetes type 2, [id number] 9. Depressive disorder 10. Asthma 11. Anxiety 12. Gastroesophageal reflux disease 13. Left breast cancer 14. ADHD/ADD PLAN: 1. Bariatric options between a sleeve, band and a Tresaure-en-Y gastric bypass were reviewed in detail. The patient elected for a sleeve gastrectomy. Robotic assisted approach described. 2. The [place] [facility] Data was also reviewed with benefits and risks as described. 3. An 8 page second-generation bariatric consent form was reviewed in detail including potential of bleeding, infection, leaks, adequate weight loss, nutritional deficiencies which the patient demonstrated understanding of the risks. 4. A 2 week high-protein low caloric 800 kcal diet described to address hepatomegaly. 5. Preoperative labs including complete metabolic panel and CBC with type and screen recommended. 6. DVT prophylaxis per [place] [facility]. 7. Antibiotic prophylaxis. 8. Inpatient hospitalization anticipated for more than 2 nights. 9. All questions and concerns were addressed with the patient. Past Medical History Past Medical History: Asthma, Cancer, Diabetes Mellitus, Fibromyalgia, Hypertension, Osteoarthritis (OA), Sleep Apnea/CPAP/BIPAP Additional Past Medical History / Comment(s): hx breast cancer, "environmental asthma", IBS, "low iron", hx kdiney stones History of Any Multi-Drug Resistant Organisms: None Reported Past Surgical History: Breast Surgery, Cholecystectomy, Hysterectomy Additional Past Surgical History / Comment(s): LEFT MASTECTOMY WITH RECONSTRUCTION Past Anesthesia/Blood Transfusion Reactions: No Reported Reaction Smoking Status: Never smoker - Past Family History Mother Family Medical History: Deep Vein Thrombosis (DVT) Medications and Allergies Home Medications Medication Instructions Recorded Confirmed Type Albuterol Inhaler [Ventolin Hfa 1 - 2 puff INHALATION Q6HR PRN 04/12/15 04/14/19 History Inhaler] Cetirizine HCl 10 mg PO HS 04/12/15 04/14/19 History DULoxetine HCL [Cymbalta] 60 mg PO BID 04/12/15 04/14/19 History HYDROcodone/APAP 5-325MG [[place] 1 tab PO Q4HR PRN 04/12/15 04/14/19 History 5-325] amLODIPine BESYLATE [Norvasc] 5 mg PO HS 04/12/15 04/14/19 History ALPRAZolam [Xanax] 0.5 mg PO BID 07/04/17 04/14/19 History Ergocalciferol (Vitamin D2) 50,000 unit PO SA 07/04/17 04/14/19 History [Vitamin D2] Furosemide [Lasix] 40 mg PO DAILY 07/04/17 04/14/19 History Omeprazole 40 mg PO DAILY 07/04/17 04/14/19 History Potassium Chloride [Klor-Con 20] 20 meq PO HS 07/04/17 04/14/19 History metFORMIN HCL [Glucophage] 1,000 mg PO BID 07/04/17 04/14/19 History Gabapentin 600 mg PO TID 03/28/19 04/14/19 History Ibuprofen [Motrin] 800 mg PO DAILY PRN 03/28/19 04/14/19 History Losartan [Cozaar] 50 mg PO HS 04/14/19 04/14/19 History Methylfolate 15 mg PO DAILY 04/14/19 04/14/19 History QUEtiapine FUMARATE [SEROquel XR] 100 mg PO HS 04/14/19 04/14/19 History Allergies Allergy/AdvReac Type Severity Reaction Status Date / Time paroxetine [From Paxil] AdvReac hair loss Verified 04/14/19 14:02
[~2019-04-21 07:30] MED LIST changes: +CHLORHEXIDINE GLUCONATE 15 ML CUP MUCOUS MEM ONE; +DEXAMETHASONE SOD PHOSPHATE 10 MG/ML 1 ML VIAL IV ONE; +ENOXAPARIN 40 MG/0.4 ML SYRINGE SQ ONE; +MIDAZOLAM 2 MG/2 ML VIAL IV PRN; +ONDANSETRON 4 MG/2 ML VIAL IVP ONE; +PANTOPRAZOLE 40 MG/10 ML VIAL IV ONE; +SCOPOLAMINE 1.5MG/72HR PATCH TRANSDERM ONE; +SCOPOLAMINE 1.5MG/72HR PATCH TRANSDERM STA
[2019-04-21 10:17] LABS: Glucose,Whole Blood 56 mg/dL (75-99)
[2019-04-21] MEDS ORDERED: DEXTROSE 50% SYRINGE 50 ML IVP ONE (10:20)
[2019-04-21 10:40] LABS: Glucose,Whole Blood 140 mg/dL (75-99)
[2019-04-21] MEDS ORDERED: MIDAZOLAM 2 MG/2 ML VIAL ONE (12:26)
[2019-04-21] MEDS ORDERED: GLYCOPYRROLATE 0.2 MG/ML 2 ML VIAL ONE (12:26)
[2019-04-21] MEDS ORDERED: LIDOCAINE 1% INJ 10MG/ML (20 ML MDV) ONE (12:26)
[2019-04-21] MEDS ORDERED: PROPOFOL 10 MG/ML 20 ML VIAL IV ONE (12:26)
[2019-04-21] MEDS ORDERED: NEOSTIGMINE 1 MG/ML 10 ML VIAL ONE (12:26)
[2019-04-21] MEDS ORDERED: ROCURONIUM BROMIDE 10 MG/ML 5 ML VIAL IV ONE (12:26)
[2019-04-21] MEDS ORDERED: fentaNYL (PF) 50 MCG/ML 2 ML AMP ONE (12:26)
[2019-04-21] MEDS ORDERED: LIDOCAINE 1%-EPI 1:100,000 20 ML VIAL SQ ONE (13:00)
[2019-04-21] MEDS ORDERED: LACTATED RINGERS 1,000 ML IV ONE ×2 (13:32)
[2019-04-21] MEDS ORDERED: diphenhydrAMINE 50 MG/ML 1 ML VIAL IVP PRN (14:01)
[2019-04-21] MEDS ORDERED: ONDANSETRON 4 MG/2 ML VIAL IVP PRN (14:01)
[2019-04-21] MEDS ORDERED: NALOXONE 0.4 MG/ML 1 ML VIAL IV PRN (14:01)
[2019-04-21] MEDS ORDERED: SIMETHICONE 40 MG/0.6 ML DROPS 2,000 MG/30 ML BOTTLE PO PRN (14:01)
[2019-04-21] MEDS ORDERED: HYDROmorphone 1 MG/ML 1 ML SYRINGE IVP PRN (14:01)
[2019-04-21] MEDS ORDERED: DEXAMETHASONE SOD PHOSPHATE 10 MG/ML 1 ML VIAL IV PRN (14:03)
[2019-04-21 14:08] LABS: Glucose,Whole Blood 188 mg/dL (75-99)
[2019-04-21] MEDS ORDERED: 0.9% NACL WITH KCL 20 MEQ/L 1,000 ML IV SCH (14:15)
[2019-04-21] MEDS ORDERED: diphenhydrAMINE 50 MG/ML 1 ML VIAL IVP ONE (14:30)
[2019-04-21] MEDS: HYDROmorphone 0.5 MG/0.5 ML SYRINGE IVP PRN ×3 (14:30→17:45)
--- NOTE | 2019-04-21 17:46 | P.OP ---
Date of Procedure: 04/21/19 Description of Procedure: SURGEON: MIRELLA STEPHENS MD PREOPERATIVE DIAGNOSES: 1. Morbid obesity due to excess calories. 2. Body mass index of 41.1, initial 3. Osteoarthritis of the knees. 4. Osteoarthritis of the hips. 5. Osteoarthritis of the lower back. 6. Obstructive sleep apnea. 7. Hypertensive heart disease. 8. Diabetes type 2, [id number] 9. Depressive disorder 10. Asthma 11. Anxiety 12. Gastroesophageal reflux disease 13. Left breast cancer 14. ADHD/ADD POSTOPERATIVE DIAGNOSES: 1. Morbid obesity due to excess calories. 2. Body mass index of 41.1, initial 3. Osteoarthritis of the knees. 4. Osteoarthritis of the hips. 5. Osteoarthritis of the lower back. 6. Obstructive sleep apnea. 7. Hypertensive heart disease. 8. Diabetes type 2, ysi-xfgyszq-kbvwkbizy 9. Depressive disorder 10. Asthma 11. Anxiety 12. Gastroesophageal reflux disease 13. Left breast cancer 14. ADHD/ADD OPERATION: 1. Robotic assisted daVinci Xi laparoscopic sleeve gastrectomy with 40-Malay bougie, multiport. 2. Intraoperative esophagogastroduodenoscopy. ANESTHESIA: Gen. local anesthetic ESTIMATED BLOOD LOSS: 20 mL SPECIMENS REMOVED: Sleeve gastrectomy COMPLICATIONS: None. INDICATIONS: Michelle Glez is a 44-year-old female who comes in with long- standing morbid obesity. She comes in with multiple comorbidities related to her morbid obesity including hypertension, diabetes type 2, obstructive sleep apnea, gastroesophageal reflux disease and hyperlipidemia. She has tried calorie restriction. She is looking into the sleeve gastrectomy. At height of 5 feet 6 inches, her ideal body weight is 154 pounds. She comes in 242 pounds from 254 pounds. Her body mass index was 41.1. She was 100 pounds overweight. She comes in for sleeve gastrectomy. All surgical options for morbid obesity had been described using the [place] [facility] collaborative comorbidity resolution including complication risk score. A second-generation bariatric consent form was described in detail including the possibility of protein malnutrition, leaks, gastric stricture, venous thrombosis, gastroesophageal reflux disease, need for further surgery for which she demonstrated understanding. Benefits and risks of the procedure were described at length. Informed consent was obtained. DESCRIPTION: The patient was brought into the operating room theater. Preoperatively she had received Lovenox subcutaneously for DVT prophylaxis. Additionally she had Peridex oral solution as an oral decontaminant. After general induction, the abdomen was prepped and draped in standard sterile fashion. An Ioban draping was placed along the abdomen. A robotic da Chalo Xi system was prepped and primed. The xiphoid to umbilicus measured 17 cm. At 15 cm from the xiphoid, proposed port sites were marked with indelible marker along the anterior axillary line bilaterally, mid axillary line bilaterally with each ports were marked 10 to 15 cm from each other. The social work assistant port was marked along the left lateral abdominal wall. The robotic stapler port was marked for the right midclavicular line. The patient had easy oozing along all of her incisions. A 5 mm 0 degrees laparoscopic trocar entry was performed along the left upper quadrant. The abdomen was insufflated to 15 mmHg pressure was tolerated well. Diagnostic laparoscopy demonstrated no injury to bowel, viscera, or mesentery. The liver surface was unremarkable. No injury had occurred to the small bowel or viscera. Along the hiatus no evidence of large prominent hiatal hernia was found. A 8 mm port was placed along the left upper abdominal wall after exchanging the 5 mm port. A separate 8 mm port was placed along the left lateral abdominal wall. Please note that the ports were placed at least 20 cm away from the target anatomy. Care was taken to check each robotic arms were safely away from collision with the bed or the patient. At the epigastrium, a median sized [place] liver retractor was placed under direct visualization with the [employer] Administrator placed under the right shoulder of the patient. Next, 12-mm robot stapler port was placed along the right upper quadrant. The camera 8-mm port was maintained along the epigastrium. The patient was repositioned in reverse Trendelenburg position at 20-degrees after lowering the bed. The robot was docked along the left side of the patient. Using a grasper for arm 4, a vessel sealer for arm 3, including grasper for arm 1, the robotic system was docked and primed as described. Instruments were interchanged by the social work assistant for stapler loads. The camera was placed at 30-degrees down. I had sat at the console. The pylorus was identified and 6 cm proximally along the greater curvature of the stomach, the short gastrics were mobilized upwards to the angle of His using a vessel sealer. Hemostasis was excellent during this portion of the procedure. Next, the upper pole of the stomach was adherent to the left ade, which was gently dissected free using atraumatic grasper. The nursing salesperson men's and boys' clothing placed a 40-Malay blunted bougie into the stomach. Robotic stapler green loads 60 mm x 3, followed by blue 60 mm x 3 loads were used to create the sleeve. Initial firing was across the antrum of the stomach towards the angle of His. The staple line was completely hemostatic and linear without corkscrewing. Hemostasis was excellent. The space from the angularis incisura of the sleeve was approximately 4 cm. I then went to the head of the bed to perform the intraoperative esophagogastroduodenoscopy leak test. The upper pole of the stomach was bathed using normal saline solution. The scope was withdrawn with careful inspection along the staple line for which no leaks were found along the entire length. Additionally,the sleeve was completely hemostatic without any encroachment along the angularis incisura. Its topology was a soft "J". No stricture was encountered upon placement of the scope. The GI tract was desufflated. The patient tolerated this portion of the procedure well. The scope was completely withdrawn. The robot was undocked. I then rescrubbed into case, whereby the irrigation fluid was aspirated from the abdominal cavity. Tisseel fibrin sealant was placed along the entire staple length. Once dried the [place] liver retractor was removed. Attention was now brought to removal of the specimen. The distal end of the sleeve gastrectomy specimen was brought out through the 12 mm port at the left upper quadrant. The specimen was gently removed en total. No contamination had occurred during this process. All instruments and pneumoperitoneum including irrigation fluid was removed from the abdominal cavity. The 12 mm port site was closed using 0-Vicryl and Nestor Flores and irrigated with diluted hydrogen peroxide. The final incisions were closed using subcuticular interrupted suture of 4-0 Monocryl. Dermabond was applied to the skin once the skin had been cleansed. OptiFoam dressing was placed along the stomach extraction site. At the end of the procedure, needle, sponge, and instrument count was verified correct by the cardiovascular surgical tech. The patient was taken to the postanesthesia care unit in stable condition. She had tolerated the procedure well. Intraoperative films and findings were reviewed with the patient's family. FINDINGS: 1. Negative intraoperative esophagogastrojejunoscopy leak test. 2. No hepatomegaly and no large hiatus hernia. 3. Total of 6 staplers used including 3 - 60 mm green robot samson and 3 - 60 mm blue robot loads used to create the gastric sleeve. 4. Xiphoid to umbilicus of 21 cm. 5. Trocars placed 15 cm from xiphoid process 6. Sleeve gastrectomy 21 x 4 cm 7. Console time 26 minutes
[2019-04-21] MEDS: ALBUTEROL NEBULIZED 2.5 MG/3 ML INHALATION SCH ×2 (19:45→21:07)
[2019-04-21] MEDS: GABAPENTIN 300 MG CAP PO SCH ×2 (19:53→20:13)
[2019-04-21] MEDS: ACETAMINOPHEN IV (For NPO) 1,000 MG in EMPTY BAG 1 BAG IVPB SCH (20:10)
[2019-04-21] MEDS: METOCLOPRAMIDE 5 MG/ML 2 ML VIAL IVP SCH (20:12)
[2019-04-21] MEDS: DEXAMETHASONE SOD PHOSPHATE 4 MG/ML 1 ML VIAL IV SCH (20:12)
[2019-04-21] MEDS: HYDROcodone/APAP 5-325MG 1 EACH TAB PO PRN (20:13)
[2019-04-21 20:54] LABS: Glucose,Whole Blood 134 mg/dL (75-99)
[2019-04-21] MEDS ORDERED: amLODIPine 5 MG TAB PO SCH (21:00)
[2019-04-21] MEDS ORDERED: LOSARTAN 50 MG TAB PO SCH (21:00)
[2019-04-21] MEDS: INSULIN ASPART (NovoLOG) 100 UNIT/ML VIAL SQ SCH (21:37)
[2019-04-21 23:52] LABS: Glucose,Whole Blood 134 mg/dL (75-99)
[2019-04-22] MEDS: METOCLOPRAMIDE 5 MG/ML 2 ML VIAL IVP SCH ×3 (00:17→13:33)
[2019-04-22] MEDS: ACETAMINOPHEN IV (For NPO) 1,000 MG in EMPTY BAG 1 BAG IVPB SCH ×3 (00:17→13:35)
[2019-04-22] MEDS: DEXAMETHASONE SOD PHOSPHATE 4 MG/ML 1 ML VIAL IV SCH ×3 (00:17→13:33)
[2019-04-22] MEDS: INSULIN ASPART (NovoLOG) 100 UNIT/ML VIAL SQ SCH ×3 (00:17→11:49)
[2019-04-22] MEDS: HYDROcodone/APAP 5-325MG 1 EACH TAB PO PRN ×4 (03:24→19:05)
[2019-04-22 05:43] LABS: Glucose,Whole Blood 131 mg/dL (75-99)
[2019-04-22] MEDS ORDERED: ENOXAPARIN 40 MG/0.4 ML SYRINGE SQ SCH (06:00)
[2019-04-22] MEDS: ALBUTEROL NEBULIZED 2.5 MG/3 ML INHALATION SCH ×3 (07:06→15:47)
[2019-04-22] MEDS ORDERED: 1: MVI, ADULT NO.4 WITH VIT K 10 ML, THIAMINE 100 MG, FOLIC ACID 1 MG, POTASSIUM CHLORID IV SCH ×6 (08:00)
[2019-04-22 08:30] LABS: African American GFR (CKD) >90 (>60 ml/min/1.73 sqM); Anion Gap 13 mmol/L; Blood Urea Nitrogen 6 mg/dL (7-17); Calcium 8.9 mg/dL (8.4-10.2); Carbon Dioxide 23 mmol/L (22-30); Chloride 104 mmol/L (98-107); Magnesium 1.9 mg/dL (1.6-2.3); Non-African American GFR(CKD) >90 (>60 ml/min/1.73 sqM); Sodium 140 mmol/L (137-145)
[2019-04-22 08:37] LABS: Anisocytosis Slight; Basophils % (A) 0 %; Eosinophils % (A) 0 %; HCT 34.2 % (34.0-46.0); HGB 11.5 gm/dL (11.4-16.0); Lymphocytes # (A) 1.3 k/uL (1.0-4.8); Lymphocytes % (A) 18 %; MCH 25.8 pg (25.0-35.0); MCHC 33.5 g/dL (31.0-37.0); Mean Platelet Volume 8.1; Microcytosis Moderate; Monocytes # (A) 0.3 k/uL (0-1.0); Monocytes % (A) 3 %; Neutrophils # (A) 5.9 k/uL (1.3-7.7); Neutrophils % (A) 79 %; Platelet Count 302 k/uL (150-450); RBC 4.45 m/uL (3.80-5.40); RDW 19.9 % (11.5-15.5); WBC 7.5 k/uL (3.8-10.6)
[2019-04-22] MEDS ORDERED: PANTOPRAZOLE 40 MG/10 ML VIAL IV SCH (09:00)
--- NOTE | 2019-04-22 09:33 | FL ---
EXAMINATION TYPE: FL UGI DATE OF EXAM: 04/22/2019 LIMITED UGI: CLINICAL HISTORY: Morbid Obesity, gastric sleeve surgery yesterday. TECHNIQUE: Limited esophagram is performed utilizing 25 oz of Isovue-370. A total of 9 seconds of fl uoroscopic time was utilized during procedure. 50 Spot images saved to PACS. COMPARISON: CT abdomen and pelvis October 26, 2016.. FINDINGS: The patient swallowed contrast without difficulty or delay. Esophageal peristalsis and mo tility are within normal limits. There is good flow of contrast along the diaphragmatic hiatus into proximal stomach and subsequent flow through proximal anastomosis into gastric sleeve. There is good flow from distal sleeve through the distal anastomosis into pylorus and duodenal sweep. Patient remai ns asymptomatic. There is no evidence of contrast extravasation to suggest leak. Cholecystectomy clip s incidentally redemonstrated. IMPRESSION: No evidence of leak or significant obstruction status post recent gastric sleeve surgery.
[2019-04-22] MEDS: GABAPENTIN 300 MG CAP PO SCH (09:41)
[2019-04-22] MEDS ORDERED: SODIUM CHLORIDE 0.9% 2,000 ML IV STA (09:49)
[2019-04-22 11:42] LABS: Glucose,Whole Blood 133 mg/dL (75-99)
--- NOTE | 2019-04-22 13:38 | P.DS ---
<Jennifer Davis - Last Filed: 04/22/19 13:35> Providers Expected date of discharge: 04/22/19 Hospital Course: 44-year-old female who underwent robotic-assisted laparoscopic sleeve gastrectomy with Dr. Manzano on 04/21/2019. Esophagram completed postoperatively negative for leak or obstruction. Patient is doing well postoperatively without any immediate complications. She is tolerating liquid diet without nausea or vomiting. Pain is controlled on oral medications. Vital signs are stable. She is stable for discharge home today. Please see EMR for further hospital course details. Discharge Diagnosis 1. Morbid obesity due to excess calories. 2. Body mass index of 41.1, initial 3. Osteoarthritis of the knees. 4. Osteoarthritis of the hips. 5. Osteoarthritis of the lower back. 6. Obstructive sleep apnea. 7. Hypertensive heart disease. 8. Diabetes type 2, [id number]-[id number] 9. Depressive disorder 10. Asthma 11. Anxiety 12. Gastroesophageal reflux disease 13. Left breast cancer 14. ADHD/ADD Nurse practitioner note has been reviewed by physician. Signing provider agrees with the documented findings, assessment, and plan of care. Patient Condition at Discharge: Stable Plan - Discharge Summary Discharge Rx Participant: No New Discharge Prescriptions: New Bisacodyl [Dulcolax] 5 mg PO DAILY PRN #10 tablet. PRN Reason: Constipation Simethicone 40 mg/0.6 ml Drops [Mylicon Drops] 40 mg PO PCHS PRN #30 ml PRN Reason: Gas Ondansetron Odt [Zofran Odt] 4 mg PO Q8HR PRN #9 tab PRN Reason: Nausea Continue HYDROcodone/APAP 5-325MG [[place] 5-325] 1 tab PO Q4HR PRN PRN Reason: Pain Omeprazole 40 mg PO DAILY No Action Cetirizine HCl 10 mg PO HS Albuterol Inhaler [Ventolin Hfa Inhaler] 1 - 2 puff INHALATION Q6HR PRN PRN Reason: Shortness Of Breath amLODIPine BESYLATE [Norvasc] 5 mg PO HS DULoxetine HCL [Cymbalta] 60 mg PO BID metFORMIN HCL [Glucophage] 1,000 mg PO BID ALPRAZolam [Xanax] 0.5 mg PO BID Potassium Chloride [Klor-Con 20] 20 meq PO HS Furosemide [Lasix] 40 mg PO DAILY Ergocalciferol (Vitamin D2) [Vitamin D2] 50,000 unit PO SA Ibuprofen [Motrin] 800 mg PO DAILY PRN PRN Reason: Pain Gabapentin 600 mg PO TID Losartan [Cozaar] 50 mg PO HS QUEtiapine FUMARATE [SEROquel XR] 100 mg PO HS Methylfolate 15 mg PO DAILY Discharge Medication List Albuterol Inhaler [Ventolin Hfa Inhaler] 1 - 2 puff INHALATION Q6HR PRN 04/12/15 [History] Cetirizine HCl 10 mg PO HS 04/12/15 [History] DULoxetine HCL [Cymbalta] 60 mg PO BID 04/12/15 [History] HYDROcodone/APAP 5-325MG [[place] 5-325] 1 tab PO Q4HR PRN 04/12/15 [History] amLODIPine BESYLATE [Norvasc] 5 mg PO HS 04/12/15 [History] ALPRAZolam [Xanax] 0.5 mg PO BID 07/04/17 [History] Ergocalciferol (Vitamin D2) [Vitamin D2] 50,000 unit PO SA 07/04/17 [History] Furosemide [Lasix] 40 mg PO DAILY 07/04/17 [History] Omeprazole 40 mg PO DAILY 07/04/17 [History] Potassium Chloride [Klor-Con 20] 20 meq PO HS 07/04/17 [History] metFORMIN HCL [Glucophage] 1,000 mg PO BID 07/04/17 [History] Gabapentin 600 mg PO TID 03/28/19 [History] Ibuprofen [Motrin] 800 mg PO DAILY PRN 03/28/19 [History] Losartan [Cozaar] 50 mg PO HS 04/14/19 [History] Methylfolate 15 mg PO DAILY 04/14/19 [History] QUEtiapine FUMARATE [SEROquel XR] 100 mg PO HS 04/14/19 [History] Bisacodyl [Dulcolax] 5 mg PO DAILY PRN #10 tablet. 04/22/19 [Rx] Ondansetron Odt [Zofran Odt] 4 mg PO Q8HR PRN #9 tab 04/22/19 [Rx] Simethicone 40 mg/0.6 ml Drops [Mylicon Drops] 40 mg PO PCHS PRN #30 ml 04/22/19 [Rx] Follow up [facility]ment(s[facility]Ref[facility] [place] [facility] - 04/25/19 10:00 am Patient Instructions/Handouts: Laparoscopic Sleeve Gastrectomy (DC) Activity/Diet/Wound Care/Special Instructions: No lifting over 4 pounds You may shower. No soaking or tub baths Very light activity until you are reevaluated at your follow up appointment with your surgeon Continue liquid diet per bariatric center schedule Avoid beverages with greater than 6 g of sugar per serving to avoid dumping syndrome No straws or carbonated beverages Crush or open medications greater than the size of a tic-tac Discharge Disposition: HOME SELF-CARE <Cindy Manzano - Last Filed: 04/23/19 19:35> Providers Date of admission: 04/21/19 09:25 Attending physician: Cindy Manzano Primary care physician: Sofía Moore Hospital Course: As above. Discharge instructions reviewed. Patient demonstrated understanding of bariatric discharge instructions.
[2019-04-22 15:32] VITALS: BP 137/80; PULSE 52; RESP 16; TEMP 98.1
[2019-04-22 18:00] LABS: Glucose,Whole Blood 147 mg/dL (75-99)
== END 2019-04-22 19:10 | disposition home or self-care (01) | DRG 621 ==
LOC: 2ORMAIN 09:25 → 4SSUR 18:07
PROVIDERS: ADMIT Surgery Plastic and Reconstructive Surgery; ATTEND Surgery Plastic and Reconstructive Surgery
PROC: 0DJ08ZZ Inspection of Upper Intestinal Tract, Via Natural or Artificial Opening Endoscopic (ICD-10-PCS; principal; 2019-04-21 11:20)
PROC: 0DB64Z3 Excision of Stomach, Percutaneous Endoscopic Approach, Vertical (ICD-10-PCS; principal; 2019-04-21 11:20)
PROC: 8E0W4CZ Robotic Assisted Procedure of Trunk Region, Percutaneous Endoscopic Approach (ICD-10-PCS; principal; 2019-04-21 11:20)
DX: E66.01 Morbid (severe) obesity due to excess calories (principal); I11.9 Hypertensive heart disease without heart failure; E11.9 Type 2 diabetes mellitus without complications; Z68.39 Body mass index [BMI] 39.0-39.9, adult; G47.33 Obstructive sleep apnea (adult) (pediatric); K21.9 Gastro-esophageal reflux disease without esophagitis; E78.5 Hyperlipidemia, unspecified; F32.9 Major depressive disorder, single episode, unspecified; J45.909 Unspecified asthma, uncomplicated; M79.7 Fibromyalgia; M17.0 Bilateral primary osteoarthritis of knee; M16.0 Bilateral primary osteoarthritis of hip; M47.9 Spondylosis, unspecified; F90.9 Attention-deficit hyperactivity disorder, unspecified type; F41.9 Anxiety disorder, unspecified; K58.9 Irritable bowel syndrome, unspecified; Z79.84 Long term (current) use of oral hypoglycemic drugs; Z79.899 Other long term (current) drug therapy; Z71.3 Dietary counseling and surveillance; Z90.49 Acquired absence of other specified parts of digestive tract; Z90.710 Acquired absence of both cervix and uterus; Z90.12 Acquired absence of left breast and nipple; Z85.3 Personal history of malignant neoplasm of breast; Z99.89 Dependence on other enabling machines and devices; Z88.8 Allergy status to other drugs, medicaments and biological substances; Z83.49 Family history of other endocrine, nutritional and metabolic diseases; Z83.3 Family history of diabetes mellitus
CPT/HCPCS: 74240; 80051; 82310; 82565; 83735; 84100; 84520; 85025; 86850; 86900; 86901; 88307; 94640; 94760

== ENCOUNTER → 2019-04-25 | Outpatient (CLI) | payer MEDICARE, OTHER ==
[2019-04-25 10:26] VITALS: BP 119/88; PULSE 103; RESP 16; TEMP 98.2; BMI 37.1
== END | disposition home or self-care (01) ==
LOC: BARWHC3 10:00
PROVIDERS: ATTEND Surgery Plastic and Reconstructive Surgery
DX: Z48.815 Encounter for surgical aftercare following surgery on the digestive system (principal)
CPT/HCPCS: 99211

== ENCOUNTER → 2019-05-07 | Outpatient (CLI) | payer MEDICARE, OTHER ==
[2019-05-07 14:07] VITALS: BP 129/88; PULSE 88; RESP 16; TEMP 98.1; BMI 35.6
--- NOTE | 2019-05-07 14:22 | P.PN ---
Subjective Progress Note Date: 05/07/19 She has lost 10 pounds in 2 weeks. Her main concern includes lactose intolerant. Her protein intake is subpar. No reports of abdominal pain. No reports of gastric suction reflux disease. She is taking her Prilosec including Xanax. She is off all blood pressure medications. Recommend adjustment of protein diet for 75 g daily. Follow up 1 month postop. No signs of hernias or infection on exam. Objective - Vital Signs Vital signs: Vital Signs Temp 98.1 F 05/07/19 14:05 Pulse 88 05/07/19 14:05 Resp 16 05/07/19 14:05 BP 129/88 05/07/19 14:05 Pulse Ox Intake & Output 05/06/19 05/07/19 05/07/19 18:59 06:59 18:59 Weight 100.244 kg
== END | disposition home or self-care (01) ==
LOC: BARWHC3 13:54
PROVIDERS: ATTEND Surgery Plastic and Reconstructive Surgery
DX: E66.01 Morbid (severe) obesity due to excess calories (principal); Z68.35 Body mass index [BMI] 35.0-35.9, adult; F41.9 Anxiety disorder, unspecified; F33.41 Major depressive disorder, recurrent, in partial remission; Z71.3 Dietary counseling and surveillance
CPT/HCPCS: 97803; G0463; 99211

== ENCOUNTER → 2019-05-28 | Outpatient (CLI) | payer MEDICARE, OTHER ==
[2019-05-28 13:21] VITALS: BP 140/72; PULSE 72; RESP 16; TEMP 97.6; BMI 34.7
--- NOTE | 2019-05-28 13:54 | P.PN ---
Subjective Progress Note Date: 05/28/19 DATE OF SERVICE: 05/28/2019 CHIEF COMPLAINT: Status sleeve gastrectomy HISTORY OF PRESENT ILLNESS: Michelle Glez is a 44-year-old female status post sleeve gastrectomy, 04/21/2019. She is over 1 month out. She is not taking her blood sugars. She does not have her blood pressure monitor. She has occasional gastroesophageal reflux disease. No dysphagia. She is sleeping well. At height of 5 feet 6 inches, ideal body weight is 154 pounds. Highest weight is 254 pounds, BMI 41.1. Today she comes in 215 pounds from 221 pounds, 3 weeks ago. She has lost 6 pounds in 3 weeks. Her body mass index is 34.7. Lifetime weight loss 39 pounds. Percent lifetime weight loss, 39% PHYSICAL EXAM: VITAL SIGNS: Height 5 foot 6 inches, weight 215 pounds. BMI 34.7 Vital Signs Temp 97.6 F 05/28/19 13:19 Pulse 72 05/28/19 13:19 Resp 16 05/28/19 13:19 BP 140/72 05/28/19 13:19 Pulse Ox Intake & Output 05/28/19 05/29/19 05/29/19 18:59 06:59 18:59 Weight 97.522 kg GENERAL: Well-developed in no acute distress. HEENT: No scleral icterus. Extraocular movements grossly intact. Hears conversational speech. No nasal drainage. NECK: Supple without lymphadenopathy. CHEST: Nonlabored respirations with equal bilateral excursions. CARDIOVASCULAR: Regular rate and regular rhythm. Distal 2+ pulses. ABDOMEN: Nontender. Nondistended. No peritonitis MUSCULOSKELETAL: No clubbing, cyanosis. NEURO: No focal or lateralizing signs. Cranial nerves 2 through 12 grossly within normal limits. PSYCH: Appropriate affect. Alert and oriented to person, place and time. SKIN: Good skin turgor. Well perfused. ASSESSMENT: 1. Morbid obesity due to excess calories. 2. Body mass index of 41.1 to 34.7 3. Osteoarthritis of the knees. 4. Osteoarthritis of the hips. 5. Osteoarthritis of the lower back. 6. Obstructive sleep apnea. 7. Hypertensive heart disease. 8. Diabetes type 2, [id number] 9. Depressive disorder 10. Asthma 11. Anxiety 12. Gastroesophageal reflux disease 13. History of left breast cancer 14. ADHD/ADD PLAN: 1. Recommend start of multivitamin. 2. Continue Omeprazole for gastroesophageal reflux disease. Objective - Vital Signs Vital signs: Vital Signs Temp 97.6 F 05/28/19 13:19 Pulse 72 05/28/19 13:19 Resp 16 05/28/19 13:19 BP 140/72 05/28/19 13:19 Pulse Ox Intake & Output 05/27/19 05/28/19 05/28/19 18:59 06:59 18:59 Weight 97.522 kg
== END | disposition home or self-care (01) ==
LOC: BARWHC3 13:05
PROVIDERS: ATTEND Surgery Plastic and Reconstructive Surgery
DX: E66.01 Morbid (severe) obesity due to excess calories (principal); Z68.34 Body mass index [BMI] 34.0-34.9, adult; M17.9 Osteoarthritis of knee, unspecified; M16.9 Osteoarthritis of hip, unspecified; M47.816 Spondylosis without myelopathy or radiculopathy, lumbar region; G47.33 Obstructive sleep apnea (adult) (pediatric); I11.9 Hypertensive heart disease without heart failure; E11.9 Type 2 diabetes mellitus without complications; F32.9 Major depressive disorder, single episode, unspecified; J45.909 Unspecified asthma, uncomplicated; F41.9 Anxiety disorder, unspecified; K21.9 Gastro-esophageal reflux disease without esophagitis; F90.9 Attention-deficit hyperactivity disorder, unspecified type; F98.8 Other specified behavioral and emotional disorders with onset usually occurring in childhood and adolescence; Z85.3 Personal history of malignant neoplasm of breast
CPT/HCPCS: 97803; G0463; 99211

== ENCOUNTER → 2019-07-25 | Outpatient (CLI) | payer MEDICARE, OTHER ==
[2019-07-25 09:31] VITALS: BP 128/85; PULSE 76; TEMP 98.2; BMI 32.5
--- NOTE | 2019-07-25 09:47 | P.PN ---
Subjective Progress Note Date: 07/25/19 DATE OF SERVICE: 07/25/2019 CHIEF COMPLAINT: Status sleeve gastrectomy HISTORY OF PRESENT ILLNESS: Michelle Glez is a 44-year-old female status post sleeve gastrectomy, 04/21/2019. She is over 3 months out. She reports hair loss. She denies abdominal pain. She is taking omeprazole. She is not taking multivitamins. She is of medications for diabetes as her hemoglobin A1c 5.0. She has adjusted her blood pressure medications. At height of 5 feet 6 inches, ideal body weight is 154 pounds. Highest weight is 254 pounds, BMI 41.1. Today she comes in 202 pounds from 215 pounds, 2 months ago. She has lost 13 pounds in 2 months. Her body mass index is 32.6. Lifetime weight loss 52 pounds. Percent lifetime weight loss, 52% PHYSICAL EXAM: VITAL SIGNS: Height 5 foot 6 inches, weight 202 pounds. BMI 32.6 Vital Signs Temp 98.2 F 07/25/19 09:19 Pulse 76 07/25/19 09:19 Resp BP 128/85 07/25/19 09:19 Pulse Ox GENERAL: Well-developed in no acute distress. HEENT: No scleral icterus. Extraocular movements grossly intact. Hears conversational speech. No nasal drainage. NECK: Supple without lymphadenopathy. CHEST: Nonlabored respirations with equal bilateral excursions. CARDIOVASCULAR: Regular rate and regular rhythm. Distal 2+ pulses. ABDOMEN: Nontender. Nondistended. No peritonitis MUSCULOSKELETAL: No clubbing, cyanosis. NEURO: No focal or lateralizing signs. Cranial nerves 2 through 12 grossly within normal limits. PSYCH: Appropriate affect. Alert and oriented to person, place and time. SKIN: Good skin turgor. Well perfused. LABS: Reviewed from outside facility. Hgb A1c is 5.0 ASSESSMENT: 1. Morbid obesity due to excess calories. 2. Body mass index of 41.1 to 32.6 3. Osteoarthritis of the knees. 4. Osteoarthritis of the hips. 5. Osteoarthritis of the lower back. 6. Obstructive sleep apnea. 7. Hypertensive heart disease. 8. Diabetes type 2, [id number] 9. Depressive disorder 10. Asthma 11. Anxiety 12. Gastroesophageal reflux disease 13. History of left breast cancer 14. ADHD/ADD 15. Status post sleeve gastrectomy PLAN: 1. Recommend protein intake under 50 g daily. 2. Recommend multivitamins. 3. Follow-up in 3 months. 4. Recommend food diary. Objective - Vital Signs Vital signs: Vital Signs Temp 98.2 F 07/25/19 09:19 Pulse 76 07/25/19 09:19 Resp BP 128/85 07/25/19 09:19 Pulse Ox Intake & Output 07/24/19 07/25/19 07/25/19 18:59 06:59 18:59 Weight 91.626 kg
== END | disposition home or self-care (01) ==
LOC: BARWHC3 08:38
PROVIDERS: ATTEND Surgery Plastic and Reconstructive Surgery
DX: Z48.815 Encounter for surgical aftercare following surgery on the digestive system (principal); E66.01 Morbid (severe) obesity due to excess calories; M17.0 Bilateral primary osteoarthritis of knee; M16.0 Bilateral primary osteoarthritis of hip; M47.816 Spondylosis without myelopathy or radiculopathy, lumbar region; G47.33 Obstructive sleep apnea (adult) (pediatric); I11.9 Hypertensive heart disease without heart failure; E11.9 Type 2 diabetes mellitus without complications; F32.9 Major depressive disorder, single episode, unspecified; J45.909 Unspecified asthma, uncomplicated; K21.9 Gastro-esophageal reflux disease without esophagitis; Z85.3 Personal history of malignant neoplasm of breast; F90.9 Attention-deficit hyperactivity disorder, unspecified type; Z98.84 Bariatric surgery status
CPT/HCPCS: 99211